=== PATIENT | female | born 1930 | race Caucasian/White ===

== ENCOUNTER 2016-11-24 14:58 | Emergency (ER) | payer MEDICARE ==
[2016-11-24 17:15] LABS: HEMOGLOBIN 14.7 gm/dl (12.3-15.3); WHITE BLOOD COUNT 6.4 K/UL (4.5-11.0)
== END 2016-11-24 21:45 | disposition home or self-care (01) ==
LOC: ER1 14:58
PROVIDERS: Family Medicine
DX: R53.83 Other fatigue (principal); R26.9 Unspecified abnormalities of gait and mobility; R53.1 Weakness; R06.02 Shortness of breath; J44.9 Chronic obstructive pulmonary disease, unspecified; Z88.0 Allergy status to penicillin; Z86.711 Personal history of pulmonary embolism; Z79.52 Long term (current) use of systemic steroids; Z79.899 Other long term (current) drug therapy
CPT/HCPCS: 36415; 51701; 71010; 80053; 81001; 82550; 82553; 83874; 83880; 84484; 85025; 93005; 99284

== ENCOUNTER → 2020-09-25 | Outpatient (CLI) | payer MEDICARE, OTHER ==
[~2020-09-25] MED LIST: ACETAMINOPHEN500 M1 PO; ARTHRITIS PAIN100 GM TP; CLINDAMYCIN HC300 MG PO; CONSTULOSE10 GM/15 M PO; ELIQUIS2.5 MG PO; ELIQUIS5 MG PO; ENOXAPARIN100 MG/1 M SC; HYDROCODON-ACE1 EAC4 PO; IPRAT-ALBUT 0.5-3 ML INH; IV FLUIDS; K-DUR TAB 20 M20 MEQ PO; LASIX20 MG PO; LEVAQUIN500 MG PO; LEVOFLOXACIN500 MG PO; MYCOSTATIN POWD15 GM TOP; POLYSPORIN OI28.3 G1 TP; PROTONIX; PROZAC 20 MG CA20 MG PO; PROZAC20 MG PO; REFRESH DIGITAL10 ML EYEBOTH; ULTRAM50 MG PO; VENTOLIN HFA 66.7 GM INH; VITAMIN D21250 MCG PO; VOLTAREN100 GM TP; XANAX0.5 MG PO
== END ==
LOC: LBRF 19:00
PROVIDERS: Family Medicine
DX: R79.1 Abnormal coagulation profile (principal); E87.6 Hypokalemia
CPT/HCPCS: 80053; 85379

== ENCOUNTER 2021-01-20 12:31 | Inpatient (IN) | payer MEDICARE, OTHER ==
[~2021-01-20] VITALS: Ht 165.1 cm; Wt 91.6 kg
[~2021-01-20 12:31] MED LIST changes: -ACETAMINOPHEN500 M1 PO; -ARTHRITIS PAIN100 GM TP; -CLINDAMYCIN HC300 MG PO; -CONSTULOSE10 GM/15 M PO; -ELIQUIS2.5 MG PO; -HYDROCODON-ACE1 EAC4 PO; -IPRAT-ALBUT 0.5-3 ML INH; -K-DUR TAB 20 M20 MEQ PO; -LASIX20 MG PO; -LEVOFLOXACIN500 MG PO; -MYCOSTATIN POWD15 GM TOP; -POLYSPORIN OI28.3 G1 TP; -REFRESH DIGITAL10 ML EYEBOTH; -VITAMIN D21250 MCG PO
[2021-01-20 13:17] LABS: HEMOGLOBIN 14.5 gm/dl (12.3-15.3); RED BLOOD COUNT 4.72 M/UL (4.00-5.10); WHITE BLOOD COUNT 11.4 K/UL (4.5-11.0)
[2021-01-20 13:36] LABS: BUN/CREATININE RATIO 18 (0-10)
[2021-01-20] MEDS ORDERED: IPRAT-ALBUT 0.5-3 ML INH (15:36)
[2021-01-20] MEDS ORDERED: ARTHRITIS PAIN100 GM TP (15:37)
[2021-01-20] MEDS ORDERED: MYCOSTATIN POWD15 GM TOP (15:37)
[2021-01-20] MEDS ORDERED: K-DUR TAB 20 M20 MEQ PO (15:38)
[2021-01-20] MEDS ORDERED: VITAMIN D21250 MCG PO (15:39)
[2021-01-20] MEDS ORDERED: POLYSPORIN OI28.3 G1 TP (15:40)
[2021-01-20] MEDS ORDERED: REFRESH DIGITAL10 ML EYEBOTH (15:40)
--- NOTE | 2021-01-20 17:22 | NUR ---
PT TRANSFERRED TO [employer] DIRECTOR FOR TEMPORARY PACEMAKER, REPORT CALLED TO ICU
[2021-01-20] MEDS ORDERED: LASIX20 MG PO (17:33)
[2021-01-21 04:55] LABS: HEMOGLOBIN 14.3 gm/dl (12.3-15.3); RED BLOOD COUNT 4.66 M/UL (4.00-5.10)
[2021-01-21 05:00] LABS: WHITE BLOOD COUNT 8.3 K/UL (4.5-11.0)
[2021-01-21] MEDS ORDERED: ELIQUIS2.5 MG PO (09:31)
[2021-01-21] MEDS ORDERED: ACETAMINOPHEN500 M1 PO (09:34)
[2021-01-21] MEDS ORDERED: CONSTULOSE10 GM/15 M PO (14:38)
[2021-01-21] MEDS ORDERED: CLINDAMYCIN HC300 MG PO (20:15)
[2021-01-21] MEDS ORDERED: HYDROCODON-ACE1 EAC4 PO (20:15)
[2021-01-21] MEDS ORDERED: LEVOFLOXACIN500 MG PO (20:15)
[2021-01-22 05:53] LABS: HEMOGLOBIN 13.7 gm/dl (12.3-15.3); RED BLOOD COUNT 4.54 M/UL (4.00-5.10); WHITE BLOOD COUNT 7.6 K/UL (4.5-11.0)
[2021-01-22] MEDS ORDERED: ELIQUIS2.5 MG PO (15:15)
== END 2021-01-24 17:08 | DRG 242 ==
LOC: ER1 12:31 → CDU 14:25 → CCU 14:25 → PROG CARE 16:03 → CCU 17:52
PROVIDERS: Family Medicine; Internal Medicine; Physician Assistant Medical; ADMIT Internal Medicine
PROC: 02HK3JZ Insertion of Pacemaker Lead into Right Ventricle, Percutaneous Approach (ICD-10-PCS; 2021-01-20)
PROC: 5A1223Z Performance of Cardiac Pacing, Continuous (ICD-10-PCS; 2021-01-20)
PROC: 0JH606Z Insertion of Pacemaker, Dual Chamber into Chest Subcutaneous Tissue and Fascia, Open Approach (ICD-10-PCS; principal; 2021-01-21)
PROC: 02HK3JZ Insertion of Pacemaker Lead into Right Ventricle, Percutaneous Approach (ICD-10-PCS; 2021-01-21)
PROC: 02H63JZ Insertion of Pacemaker Lead into Right Atrium, Percutaneous Approach (ICD-10-PCS; 2021-01-21)
PROC: B24BZZZ Ultrasonography of Heart with Aorta (ICD-10-PCS; 2021-01-21)
DX: I44.2 Atrioventricular block, complete (principal); J96.91 Respiratory failure, unspecified with hypoxia; I31.3 Pericardial effusion (noninflammatory); R00.1 Bradycardia, unspecified; Z20.822 Contact with and (suspected) exposure to COVID-19; I47.2 Ventricular tachycardia; R40.0 Somnolence; Z66 Do not resuscitate; J44.9 Chronic obstructive pulmonary disease, unspecified; F03.90 Unspecified dementia, unspecified severity, without behavioral disturbance, psychotic disturbance, mood disturbance, and anxiety; K21.9 Gastro-esophageal reflux disease without esophagitis; K22.5 Diverticulum of esophagus, acquired; I10 Essential (primary) hypertension; Z79.899 Other long term (current) drug therapy; Z79.01 Long term (current) use of anticoagulants; Z86.711 Personal history of pulmonary embolism; Z86.718 Personal history of other venous thrombosis and embolism; Z82.61 Family history of arthritis; Z84.89 Family history of other specified conditions
CPT/HCPCS: ECHO; 33208; 33210; 36415; 36600; 71045; 80048; 80053; 82550; 82553; 82803; 83735; 83874; 84439; 84443; 84484; 85025; 85027; 92526; 92610; 93005; 93306; 94760; 97110-GP-CQ; 97162; 99152; 99153; 99285; C1894; C1898; C2621; J1644; J2250; J2405; J3010; J3370; J7030; J7040; J7050; J7070; U0002

== ENCOUNTER 2021-02-10 02:32 | Inpatient (IN) | payer MEDICARE, OTHER ==
[~2021-02-10] VITALS: Ht 165.1 cm; Wt 109.3 kg
[~2021-02-10 02:32] MED LIST changes: +ACETAMINOPHEN500 M1 PO; +ARTHRITIS PAIN100 GM TP; +CLINDAMYCIN HC300 MG PO; +CONSTULOSE10 GM/15 M PO; +ELIQUIS2.5 MG PO; +HYDROCODON-ACE1 EAC4 PO; +IPRAT-ALBUT 0.5-3 ML INH; +K-DUR TAB 20 M20 MEQ PO; +LASIX20 MG PO; +LEVOFLOXACIN500 MG PO; +MYCOSTATIN POWD15 GM TOP; +POLYSPORIN OI28.3 G1 TP; +REFRESH DIGITAL10 ML EYEBOTH; +VITAMIN D21250 MCG PO
[2021-02-10 04:32] LABS: HEMOGLOBIN 13.3 gm/dl (12.3-15.3); RED BLOOD COUNT 4.62 M/UL (4.00-5.10); WHITE BLOOD COUNT 11.1 K/UL (4.5-11.0)
--- NOTE | 2021-02-10 09:22 | NUR ---
0910- NOTIFIED CARDIOLOGY AND DR ODELL OF CRITICAL LAB RESULTS.
[2021-02-10] MEDS ORDERED: FLUCONAZOLE100 MG PO (11:37)
[2021-02-10] MEDS ORDERED: BENADRYL25 MG PO (11:40)
[2021-02-10] MEDS ORDERED: ACETAMINOPHEN-1 EAC1 PO (11:42)
[2021-02-10] MEDS ORDERED: MAALOX MAXIMUM355 ML PO (11:43)
[2021-02-10] MEDS ORDERED: ARTIFICIAL TEAR15 ML EYEBOTH (11:45)
[2021-02-10] MEDS ORDERED: ZOFRAN4 MG PO (11:46)
[2021-02-10] MEDS ORDERED: HYDROCODON-ACE1 EAC4 PO (11:49)
[2021-02-10] MEDS ORDERED: CHLORASEPTIC20 ML PO (11:50)
[2021-02-10] MEDS ORDERED: [UNRECOGNIZED DRUG - OTHER] TOP (11:53)
[2021-02-10] MEDS ORDERED: ELIQUIS2.5 MG PO (11:55)
[2021-02-10] MEDS ORDERED: IPRAT-ALBUT 0.5-3 ML INH (12:00)
--- NOTE | 2021-02-11 16:14 | NUR ---
DR SCOTT NOTIFIED OF BLADDER SCAN SHOWING 60 CC OF URINE
--- NOTE | 2021-02-11 18:30 | NUR ---
PT STILL HASNT URINATED, BLADDER SCANNED PT SCANNER STATED >60CC
--- NOTE | 2021-02-11 20:10 | NUR ---
NOTIFIED DR SALAZAR OF LACTIC ACID OF 18.2. RECIEVED NO NEW ORDERS. WILL CONTINUE TO MONITOR.
--- NOTE | 2021-02-12 00:07 | NUR ---
NOTIIFED DR SANDERS OF CRITICAL LACTIC ACID LEVEL OF 18.9. RECIEVED NO NEW ORDERS. WILL CONTINUE TO MONITOR.
[2021-02-12 15:36] LABS: HEMOGLOBIN 11.2 gm/dl (12.3-15.3); RED BLOOD COUNT 3.77 M/UL (4.00-5.10); WHITE BLOOD COUNT 7.9 K/UL (4.5-11.0)
[2021-02-13] MEDS ORDERED: HYDROCODON-ACE1 EAC4 PO (13:55)
[2021-02-13] MEDS ORDERED: ISOSORBIDE MONO30 MG PO (13:55)
[2021-02-13] MEDS ORDERED: ATORVASTATIN CA40 MG PO (13:55)
[2021-02-13] MEDS ORDERED: LOPRESSOR 25 MG25 MG PO (13:55)
[2021-02-13] MEDS ORDERED: CLOPIDOGREL75 MG PO (13:55)
[2021-02-13] MEDS ORDERED: XANAX0.5 MG PO (13:55)
[2021-02-16] MEDS ORDERED: LEVOFLOXACIN750 MG PO (16:13)
== END 2021-02-17 17:06 | DRG 280 ==
LOC: ER1 02:32 → CDU 05:45 → M/S 05:45
PROVIDERS: Family Medicine; Internal Medicine; Internal Medicine Nephrology; ADMIT Internal Medicine
DX: I21.4 Non-ST elevation (NSTEMI) myocardial infarction (principal); J18.9 Pneumonia, unspecified organism; G93.41 Metabolic encephalopathy; Z20.822 Contact with and (suspected) exposure to COVID-19; I44.2 Atrioventricular block, complete; N17.9 Acute kidney failure, unspecified; Z66 Do not resuscitate; Z68.41 Body mass index [BMI] 40.0-44.9, adult; J44.0 Chronic obstructive pulmonary disease with (acute) lower respiratory infection; R00.1 Bradycardia, unspecified; I12.9 Hypertensive chronic kidney disease with stage 1 through stage 4 chronic kidney disease, or unspecified chronic kidney disease; E66.01 Morbid (severe) obesity due to excess calories; K21.9 Gastro-esophageal reflux disease without esophagitis; N18.30 Chronic kidney disease, stage 3 unspecified; N28.1 Cyst of kidney, acquired; M19.90 Unspecified osteoarthritis, unspecified site; R63.0 Anorexia; F41.9 Anxiety disorder, unspecified; E87.5 Hyperkalemia; K22.5 Diverticulum of esophagus, acquired; F03.90 Unspecified dementia, unspecified severity, without behavioral disturbance, psychotic disturbance, mood disturbance, and anxiety; E27.9 Disorder of adrenal gland, unspecified; Z95.0 Presence of cardiac pacemaker; Z86.718 Personal history of other venous thrombosis and embolism; Z79.01 Long term (current) use of anticoagulants; Z91.81 History of falling; Z74.01 Bed confinement status; I25.2 Old myocardial infarction; Z80.9 Family history of malignant neoplasm, unspecified; Z86.711 Personal history of pulmonary embolism; Z90.49 Acquired absence of other specified parts of digestive tract; Z90.710 Acquired absence of both cervix and uterus; Z81.1 Family history of alcohol abuse and dependence; Z83.6 Family history of other diseases of the respiratory system; Z82.3 Family history of stroke; Z82.49 Family history of ischemic heart disease and other diseases of the circulatory system; Z83.3 Family history of diabetes mellitus; Z88.0 Allergy status to penicillin; Z68.37 Body mass index [BMI] 37.0-37.9, adult
CPT/HCPCS: 36415; 36600; 51701; 71045; 80048; 80053; 80307; 81001; 82550; 82553; 82803; 82962; 83605; 83874; 83880; 84484; 85025; 85610; 85730; 87040; 87081; 92526; 92610; 93005; 94640; 94664; 94760; 97110-GP-CQ; 97162; 97166; 97530-GP-CQ; 99285; J1644; J2020; J2185; J2405; J7030; P9047; U0002

== ENCOUNTER → 2021-03-31 | Outpatient (CLI) | payer MEDICARE, OTHER ==
[~2021-03-31] MED LIST changes: +ACETAMINOPHEN-1 EAC1 PO; +ARTIFICIAL TEAR15 ML EYEBOTH; +ATORVASTATIN CA40 MG PO; +BENADRYL25 MG PO; +CHLORASEPTIC20 ML PO; +CLOPIDOGREL75 MG PO; +FLUCONAZOLE100 MG PO; +ISOSORBIDE MONO30 MG PO; +LEVOFLOXACIN750 MG PO; +LOPRESSOR 25 MG25 MG PO; +MAALOX MAXIMUM355 ML PO; +ZOFRAN4 MG PO; +[UNRECOGNIZED DRUG - OTHER] TOP
== END ==
LOC: LBRF 11:00
PROVIDERS: Family Medicine
DX: R79.89 Other specified abnormal findings of blood chemistry (principal)
CPT/HCPCS: 80048

== ENCOUNTER 2021-06-24 22:37 | Observation (INO) | payer MEDICARE, OTHER ==
[~2021-06-24] VITALS: Ht 157.5 cm; Wt 86.2 kg
[~2021-06-24 22:37] MED LIST changes: -ALPRAZOLAM0.5 MG PO; -ATORVASTATIN CA20 MG PO; -AZITHROMYCIN INJ; -LACTULOSE10 GM/15 M PO; -METOPROLOL TART25 MG PO; -MYCOSTATIN100000 UTS PO; -TYLENOL EXTRA500 MG PO; -XYLOCAINE VISC100 ML TOP
[2021-06-24 23:18] LABS: HEMOGLOBIN 9.4 gm/dl (12.3-15.3); RED BLOOD COUNT 2.88 M/UL (4.00-5.10); WHITE BLOOD COUNT 5.2 K/UL (4.5-11.0)
[2021-06-25] MEDS ORDERED: ATORVASTATIN CA20 MG PO (11:11)
[2021-06-25] MEDS ORDERED: METOPROLOL TART25 MG PO (11:16)
[2021-06-25] MEDS ORDERED: ALPRAZOLAM0.5 MG PO (11:23)
[2021-06-25] MEDS ORDERED: XYLOCAINE VISC100 ML TOP (11:24)
[2021-06-25] MEDS ORDERED: MYCOSTATIN100000 UTS PO (11:25)
[2021-06-25] MEDS ORDERED: AZITHROMYCIN INJ (11:26)
[2021-06-25] MEDS ORDERED: LACTULOSE10 GM/15 M PO (11:28)
[2021-06-25] MEDS ORDERED: TYLENOL EXTRA500 MG PO (11:28)
--- NOTE | 2021-06-26 18:52 | NUR ---
NOTIFIED NURSE THAT THE PICC LINE IN THE RIGHT UPPER ARM CAN BE USED.
[2021-06-27] MEDS ORDERED: MORPHINE IV (11:43)
[2021-06-27] MEDS ORDERED: ATIVAN2 MG/1 ML INJ ×2 (11:43→12:10)
[2021-06-27] MEDS ORDERED: MORPHINE SU4 MG/1 M3 IV (12:10)
== END 2021-06-27 14:50 ==
LOC: ER1 22:37 → M/S 06-25 05:00 → CDU 06-25 05:00 → M/S 06-25 16:05
PROVIDERS: Emergency Medicine; Family Medicine; ADMIT Internal Medicine
DX: J98.2 Interstitial emphysema (principal); K91.89 Other postprocedural complications and disorders of digestive system; K22.3 Perforation of esophagus; G20 Parkinson's disease; F02.80 Dementia in other diseases classified elsewhere, unspecified severity, without behavioral disturbance, psychotic disturbance, mood disturbance, and anxiety; R57.9 Shock, unspecified; D69.6 Thrombocytopenia, unspecified; D64.9 Anemia, unspecified; N17.9 Acute kidney failure, unspecified; I48.91 Unspecified atrial fibrillation; I25.10 Atherosclerotic heart disease of native coronary artery without angina pectoris; I10 Essential (primary) hypertension; J18.9 Pneumonia, unspecified organism; B37.0 Candidal stomatitis; E66.01 Morbid (severe) obesity due to excess calories; Z68.34 Body mass index [BMI] 34.0-34.9, adult; Z20.822 Contact with and (suspected) exposure to COVID-19; Z86.718 Personal history of other venous thrombosis and embolism; Z86.711 Personal history of pulmonary embolism; Z79.01 Long term (current) use of anticoagulants; Z79.899 Other long term (current) drug therapy; Z88.0 Allergy status to penicillin; Z88.1 Allergy status to other antibiotic agents; Z74.01 Bed confinement status; Z51.5 Encounter for palliative care; Y83.8 Other surgical procedures as the cause of abnormal reaction of the patient, or of later complication, without mention of misadventure at the time of the procedure
CPT/HCPCS: 36430; 36600; 70450; 71250; 80053; 80307; 81001; 82272; 82550; 82553; 82803; 82962; 83605; 83874; 83880; 84484; 85025; 85384; 85610; 85730; 86850; 86900; 86901; 86920; 87040; 93005; 94760; 96374; 96375; 99285; G0378; J1335; J1450; J2270; J2405; P9016; U0002

== ENCOUNTER → 2021-06-24 | Day surgery (SDC) | payer MEDICARE, OTHER ==
[~2021-06-24] MED LIST changes: +ALPRAZOLAM0.5 MG PO; +ATORVASTATIN CA20 MG PO; +AZITHROMYCIN INJ; +BISACODYL10 MG PR; +CARBIDOPA-LEVO1 EA14 PO; +KLOR-CON M2020 MEQ PO; +LACTULOSE10 GM/15 M PO; +METOPROLOL TART25 MG PO; +MYCOSTATIN100000 UTS PO; +PHENERGAN 25 MG25 M1 PO; +REMERON30 MG PO; +TYLENOL EXTRA500 MG PO; +XYLOCAINE VISC100 ML TOP
== END | disposition home or self-care (01) ==
LOC: OR 07:28
DX: K22.2 Esophageal obstruction (principal); K29.71 Gastritis, unspecified, with bleeding; B37.81 Candidal esophagitis; K22.5 Diverticulum of esophagus, acquired; I10 Essential (primary) hypertension; E78.5 Hyperlipidemia, unspecified; J44.9 Chronic obstructive pulmonary disease, unspecified; K21.9 Gastro-esophageal reflux disease without esophagitis; F17.210 Nicotine dependence, cigarettes, uncomplicated; E66.01 Morbid (severe) obesity due to excess calories; Z88.0 Allergy status to penicillin; Z79.899 Other long term (current) drug therapy
CPT/HCPCS: J2704; J7040